=== PATIENT | male | born 1945 | race Caucasian/White ===

== ENCOUNTER 2016-12-24 07:50 | Emergency (ER) | payer MEDICARE, OTHER ==
[2016-12-24 08:04] VITALS: BP 189/88
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
== END 2016-12-24 09:16 | disposition home or self-care (01) ==
LOC: ER 07:50
DX: S59.901A Unspecified injury of right elbow, initial encounter (principal); R20.9 Unspecified disturbances of skin sensation; W01.0XXA Fall on same level from slipping, tripping and stumbling without subsequent striking against object, initial encounter; Y93.01 Activity, walking, marching and hiking; Y92.003 Bedroom of unspecified non-institutional (private) residence as the place of occurrence of the external cause